=== PATIENT | male | born 1950 | race Caucasian/White ===

== ENCOUNTER 2021-03-28 10:51 | Outpatient (CLI) | payer OTHER, MEDICARE | END 2021-03-28 23:59 | disposition home or self-care (01) | LOC: RAD 10:51 | PROVIDERS: ATTEND Physician Assistant | DX: Z02.9 Encounter for administrative examinations, unspecified (principal) ==

== ENCOUNTER 2021-03-28 11:15 | Outpatient (CLI) | payer OTHER, MEDICARE ==
[2021-03-28 12:59] LABS: CREATININE 0.85 mg/dL (0.7-1.3)
[2021-03-28] MEDS ORDERED: OMNIPAQUE 350 MG/ML, 75ML BOTTLE ONE (15:11)
== END 2021-03-28 23:59 | disposition home or self-care (01) ==
LOC: RAD 11:15
PROVIDERS: ATTEND Physician Assistant
DX: I71.2 Thoracic aortic aneurysm, without rupture (principal); M51.37 Other intervertebral disc degeneration, lumbosacral region; M47.816 Spondylosis without myelopathy or radiculopathy, lumbar region; M51.26 Other intervertebral disc displacement, lumbar region; I25.10 Atherosclerotic heart disease of native coronary artery without angina pectoris; R63.4 Abnormal weight loss; Z87.891 Personal history of nicotine dependence
CPT/HCPCS: 36415; 71260; 72148; 82565; Q9967